=== PATIENT | female | born 1955 | race Caucasian/White ===

== ENCOUNTER 2021-08-14 21:07 | Emergency (ER) | payer OTHER ==
[~2021-08-14] VITALS: Ht 157.5 cm; Wt 77.1 kg
--- NOTE | 2021-08-14 21:29 | NUR ---
Placed in room tent . Placed on cardiac care nurse, blood pressure machine and pulse oximeter. To gown for exam. Side rails up.
--- NOTE | 2021-08-14 21:30 | NUR ---
Pt brought by daughter, A&Ox4, pt presents to ER with dizziness , episode of high BP, current BP 148/70, also c/o tingling of extremities, skin pink and warm, cap refill <3, VSS , will cont to monitor.
[2021-08-14 21:33] VITALS: BP_SYST 148
--- NOTE | 2021-08-14 22:14 | NUR ---
Report given to Manuel ROUSE
--- NOTE | 2021-08-14 22:46 | NUR ---
Placed in room 6 . Placed on gang head saw operator, blood pressure machine and pulse oximeter. To gown for exam. Side rails up. Report given to JORGE ROUSE.
--- NOTE | 2021-08-14 23:10 | NUR ---
PT BROUGHT TO ER BY DAUGHTER IN PRIVATE VEHICLE, PT HAS COMPLAINT OF DIZINESS. STARTED TO FEEL DIZENESS WHEN WAKING FROM [place] TODAY. PT STATED SHE HAD SOB, WITH SOME CHEST PAIN AND NUBNESS ON HER LEFT ARM. PATIENT HAS ALSO STARTED TAKING POTASSIUM PO UNKNOWN DOSAGE AMOUNT. PT IS IN BED WITH BED LOWERED, LOCKED AND RAILS UP. VS ARE WITHIN NORMAL LIMITS. WILL CONITNUE TO MANITOR Addendum: 08/14/21 at 2316 by SABA PT DENIES ANY SOB NOW, CHEST PAIN, NUBNESS OR LEFT ARM
[2021-08-14] MEDS ORDERED: MECLIZINE HCL 25 MG TABLET (ANITVERT) PO ONE (23:45)
[2021-08-15 00:59] LABS: BASOPHILS # (AUTO) 0.1 K/uL (0.0-0.2); BASOPHILS % (AUTO) 0.7 % (0.0-2.0); EOSINOPHILS # (AUTO) 0.2 K/uL (0.0-0.4); EOSINOPHILS % (AUTO) 1.6 % (0.0-4.0); HEMATOCRIT 37.6 % (36-48); HEMOGLOBIN 12.9 g/dL (12.0-16.0); LYMPHOCYTES # (AUTO) 2.9 K/uL (1.0-5.5); LYMPHOCYTES % (AUTO) 26.3 % (20.5-51.5); MEAN CORPUSCULAR HEMOGLOBIN 29 pg (27-31); MEAN CORPUSCULAR HGB CONC 34 % (32-36); MEAN CORPUSCULAR VOLUME 86 fL (79.0-98.0); MONOCYTES # (AUTO) 0.9 K/uL (0.0-1.0); MONOCYTES % (AUTO) 8.1 % (1.7-9.3); NEUTROPHILS # (AUTO) 6.9 K/uL (1.8-7.7); NEUTROPHILS % (AUTO) 63.3 % (40.0-70.0); PLATELET COUNT (AUTO) 356 K/uL (130-430); RED BLOOD CELL COUNT(AUTO) 4.38 MIL/uL (4.2-6.2); WHITE BLOOD COUNT (AUTO) 10.9 K/uL (4.8-10.8)
[2021-08-15 01:00] LABS: ANION GAP 7 (5-15); CALCIUM 9.2 mg/dL (8.4-11.0); CHLORIDE 100 mmol/L (98-107); CREATININE 1.11 mg/dL (0.55-1.30); GLUCOSE 122 mg/dL (70-99); POTASSIUM 3.8 mmol/L (3.5-5.1); SODIUM SERUM 137 mmol/L (136-145); UREA NITROGEN, BLOOD 21 mg/dL (8-21)
[2021-08-15 01:14] LABS: ALANINE AMINOTRANSFERASE 23 U/L (12-78); ALBUMIN 3.5 g/dL (3.4-4.8); ASPARTATE AMINOTRANSFERASE 12 U/L (10-37); TOTAL BILIRUBIN 0.3 mg/dL (0.0-1.0)
[2021-08-15 01:15] LABS: GFR AFRICAN AMERICAN 63 mL/min (>90)
[2021-08-15] MEDS ORDERED: iohexoL 350 mgI/mL, 100 ML INFUS..BTL IV ONE (02:20)
[2021-08-15 02:36] LABS: INR 0.9 (0.8-1.2); PROTHROMBIN TIME 9.8 SECS (9.5-12.5)
[2021-08-15] MEDS ORDERED: MECL-160 PO (03:31)
[2021-08-15 04:12] VITALS: BP_SYST 176
--- NOTE | 2021-08-15 04:12 | NUR ---
Patient given written and verbal discharge instructions and verbalizes understanding. ER DR MACHELLE CHAN discussed with patient the results and treatment provided. Patient in stable condition. ID arm band removed. IV catheter removed intact and dressing applied, no active bleeding. Rx of MECLIZINE HCL given. Patient educated on pain management and to follow up with PMD. Pain Scale . Opportunity for questions provided and answered. Medication side effect fact sheet provided.
== END 2021-08-15 04:10 | disposition home or self-care (01) ==
LOC: SED 21:07
DX: R42 Dizziness and giddiness (principal); R11.0 Nausea; I10 Essential (primary) hypertension; Z79.899 Other long term (current) drug therapy
CPT/HCPCS: 36415; 70450; 70496; 70498; 71045; 76376; 80053; 83880; 84484; 85025; 85610; 85730; 93005; 99285; J8597; Q9967